=== PATIENT | female | born 1955 | race African-American/Black ===

== ENCOUNTER 2018-04-28 18:59 | Inpatient (IN) ==
--- NOTE | 2018-04-28 20:17 | XR ---
EXAM DATE: 04/28/2018 8:14 PM EST AGE/SEX: 62 years / Female INDICATIONS: Chest pain CLINICAL DATA: This is the patient's initial encounter. Patient reports that signs and symptoms have been present for 2 days and indicates a pain score of 0/10. MEDICAL/SURGICAL HISTORY: Hypertension. None. COMPARISON: . FINDINGS: A single AP view of the chest demonstrates the lungs to be symmetrically aerated without evidence of mass, infiltrate or effusion. Minimal basilar atelectasis. The cardiomediastinal contours are unremar kable. Osseous structures are intact. CONCLUSION: Minimal basilar atelectasis. Electronically signed by: Joel Stokes MD Board Certified Radiologist 04/28/2018 8:16 PM EST
--- NOTE | 2018-04-28 20:25 | ED ---
HPI General Chief complaint: Hypertension Stated complaint: Elevated blood pressure complaint Time Seen by Provider: 04/28/18 20:04 Source: patient Limitations: no limitations History of Present Illness HPI narrative: The patient is a 62 year old male who presents to the [facility] emergency department with a history of multiple systemic complaints that first began on of this past week, 3 days ago. The patient reports that she initially developed a pounding headache. She reports that the headache is present in bilateral temples. The patient reports that she is visiting from [place]. The patient reports that the only blood pressure medication that she is on is Resilo. She denies any recent changes in her blood pressure medication, however the patient on arrival was noted to have a blood pressure of 245/121. She reports that normally her blood pressure is well controlled with her medication regimen, however she has had some recent dietary indiscretions and is also been under increased stress. The patient reports that she then 2 days ago developed a chest pressure that is been coming and going, however more persistent in the center of her chest today. The patient's final concern is a heavy sensation in bilateral upper extremities associated with tingling in her hands. She reports that she has had this in the past and has been diagnosed with a pinched nerve in her neck as well as spinal spondylosis. She reports that she does take a low-dose aspirin daily which she did take today. She reports a prior history of stroke in November 2017 with mild residual weakness of her right upper extremity. She denies having any recent shortness of breath, vomiting, or diarrhea. She reports that she does have some nausea. She denies having, on review of systems, any known recent fevers, cough, congestion, urinary symptoms, new focal weakness of her extremities, new tingling of her extremities, facial droop, difficulty with word finding ability, vertigo, or vision changes. Related Data Home Medications Medication Instructions Recorded Confirmed Etoricoxib 90 mg PO DAILY 04/28/18 04/28/18 Mydocalm 150 mg PO BID 04/28/18 aspirin [Aspirin Low Dose] 81 mg PO DAILY 04/28/18 04/28/18 atorvastatin 40 mg PO QPM 04/28/18 04/28/18 losartan 50 mg PO DAILY 04/28/18 04/28/18 pregabalin 75 mg PO BID 04/28/18 04/28/18 Allergies Allergy/AdvReac Type Severity Reaction Status Date / Time No Known Allergies Allergy Verified 04/28/18 19:34 Review of Systems ROS: all other systems reviewed are negative [facility] Medical History Medical History Hypercholesteremia (Acute) Hypertension (Acute) Spondylosis (Acute) TIA (transient ischemic attack) (Acute) Social History Social History Smoking Status: Never smoker How Often Do You Have a Drink Containing Alcohol: Never Immunization History Tetanus Immunization: >5 Years Exam Const General: cooperative, no acute distress and well developed Nutritional Appearance: well nourished Orientation: alert, awake and oriented x3 HENMT Head: normocephalic and atraumatic Nose: no nasal discharge and no epistaxis Mouth: moist mucous membranes Throat: posterior oropharynx normal and uvula midline Eyes Sclera: normal sclerae Pupils: PERRL Neck Neck: no meningeal signs, trachea midline and no JVD Resp Effort & Inspection: no use of accessory muscles Auscultation: clear to auscultation bilaterally Cardio Rate: regular rate Rhythm: regular rhythm Heart Sounds: no murmurs GI Inspection: non-distended Palpation: soft, no hepatosplenomegaly, no guarding, not rigid and nontender Auscultation: normal bowel sounds Back/Spine/Pelvis Back: no CVA tenderness Skin General: dry skin (warm) Neuro General: alert, awake and oriented x3 Cranial Nerves: CN's II-XI intact bilaterally Speech: speech normal Motor: strength 5/5 throughout and no movement abnormalities noted Sensory Exam: no sensory deficits noted Extrem General: normal to inspection (2+ pulses in all 4 extremities.), no calf tenderness, no clubbing, no cyanosis and no edema Psych Mood: congruent mood Affect: normal affect Judgment: judgment good Course Initial Documented Vital Signs Temperature 98.5 F 04/28/18 19:14 Pulse Rate 72 04/28/18 19:14 Respiratory Rate 20 04/28/18 19:14 Blood Pressure 195/119 H 04/28/18 19:14 Pulse Oximetry 99 04/28/18 19:14 Last Documented Vital Signs Temperature 98.5 F 04/28/18 19:14 Pulse Rate 68 04/28/18 21:10 Respiratory Rate 20 04/28/18 21:10 Blood Pressure 166/90 H 04/28/18 21:10 Pulse Oximetry 98 04/28/18 21:10 Medical Decision Making MDM Narrative Medical decision making narrative: During the course of the patient's emergency department visit, the patient's history, examination, and differential diagnosis were reviewed with the patient. The patient was placed on a cardiac technologist with oximetry and frequent blood pressure monitoring. The patient had IV access obtained and blood work sent for analysis. Diagnostic evaluation was started regarding the patient's heavy sensation in bilateral upper extremities, chest pressure, pounding headache. The patient arrives with a blood pressure of 245/121. The patient was initially provided labetalol 10 mg IV, Tylenol for pain, nitroglycerin sublingual x1, nitroglycerin 1 inch to the chest wall. The patient's diagnostic evaluation is remarkable for a white count of 7.5, hemoglobin 13.7, platelets 178 with a normal differential, PT PTT within normal limits, d-dimer is noted to be elevated at 1.17, CTA to rule out PE was ordered. Chemistry is remarkable for potassium of 3.4, GFR of 88, AST is 64, ALT 99, alkaline phosphatase is 151. CPK is 1411 consistent with rhabdomyolysis with a normal MB percent, troponin I is less than 0.02, BNP within normal limits, lipase 143 a chest x-ray showed minimal basilar atelectasis, CT scan of the brain showed no acute abnormality. CTA of the chest shows no evidence of pulmonary embolism, minimal right basilar atelectatic changes are noted, cholelithiasis is noted. The patient's case including history, pertinent physical examination findings, and laboratory studies were discussed with the [facility] residents. It was agreed that the patient would be admitted to the [facility]. The patient's results were discussed with the patient, including the plan of care. I explained that further testing and/ or monitoring is indicated based on the patient's history, examination, and/ or laboratory findings. Therefore, I recommended admission for additional evaluation. The patient expressed understanding and was agreeable with this plan. The patient was admitted to the hospital in guarded condition and sent to a bed under the care of the residents. Medical Screen Exam Complete: Yes Emergency Medical Condition: Yes Differential Diagnosis Differential Diagnosis: Intracranial hemorrhage, versus acute coronary syndrome , versus hypertensive urgency, versus hypertensive emergency Medical Records Medical records reviewed: Yes I reviewed the patient's medical records. Lab Data Lab results reviewed: Yes I reviewed the patient's lab results. Result diagrams: 04/28/18 20:00 04/28/18 20:00 Lab Results 04/28/18 04/28/18 04/28/18 Range/Units 20:00 20:00 20:00 WBC 7.5 (4.0-11.0) th/mm3 RBC 4.31 (4.00-5.30) mil/mm3 Hgb 13.7 (11.6-15.3) gm/dL Hct 39.4 (35.0-46.0) % MCV 91.6 (80.0-100.0) fL MCH 31.9 (27.0-34.0) pg MCHC 34.8 (32.0-36.0) % RDW 14.6 (11.6-17.2) % Plt Count 178 (150-450) th/mm3 MPV 9.2 (7.0-11.0) fL Neut % (Auto) 60.4 (16.0-70.0) % Lymph % (Auto) 32.9 (9.0-44.0) % [place] % (Auto) 5.4 (0.0-8.0) % Eos % (Auto) 0.8 (0.0-4.0) % Baso % (Auto) 0.5 (0.0-2.0) % Neut # (Auto) 4.5 (1.8-7.7) th/mm3 Lymph # (Auto) 2.5 (1.0-4.8) th/mm3 [place] # (Auto) 0.4 (0.0-0.9) th/mm3 Eos # (Auto) 0.1 (0.0-0.4) th/mm3 Baso # (Auto) 0.0 (0.0-0.2) th/mm3 WBC Differential . Differential Comment Auto diff final PT 10.7 (9.8-11.6) sec INR 1.1 Ratio APTT 25.7 (23.4-31.7) sec D-Dimer Quant (PE/DVT) 1.17 H (0.00-0.50) mg/L FEU Sodium 141 (136-145) meq/L Potassium 3.4 L (3.5-5.1) meq/L Chloride 106 (98-107) meq/L Carbon Dioxide 28.1 (21.0-32.0) meq/L Anion Gap 7 (5-15) meq/L BUN 16 (7-18) mg/dL Creatinine 0.80 (0.50-1.00) mg/dL Estimated GFR 88 L (>89) mL/min Random Glucose 78 (74-106) mg/dL Calcium 8.7 (8.5-10.1) mg/dL Magnesium 2.4 (1.5-2.5) mg/dL Total Bilirubin 0.4 (0.2-1.0) mg/dL AST 64 H (15-37) U/L ALT 99 H (10-53) U/L Alkaline Phosphatase 151 H (45-117) U/L Total Creatine Kinase 1411 H (26-192) U/L CK-MB (CK-2) 6.9 H (0.5-3.6) ng/mL CK-MB (CK-2) % 0.5 (0.0-4.0) % Troponin I Less than 0.02 L (0.02-0.05) ng/mL B-Natriuretic Peptide (0-100) pg/mL Total Protein 8.4 H (6.4-8.2) g/dL Albumin 3.9 (3.4-5.0) g/dL Lipase 143 (73-393) U/L 04/28/18 Range/Units 20:00 WBC (4.0-11.0) th/mm3 RBC (4.00-5.30) mil/mm3 Hgb (11.6-15.3) gm/dL Hct (35.0-46.0) % MCV (80.0-100.0) fL MCH (27.0-34.0) pg MCHC (32.0-36.0) % RDW (11.6-17.2) % Plt Count (150-450) th/mm3 MPV (7.0-11.0) fL Neut % (Auto) (16.0-70.0) % Lymph % (Auto) (9.0-44.0) % [place] % (Auto) (0.0-8.0) % Eos % (Auto) (0.0-4.0) % Baso % (Auto) (0.0-2.0) % Neut # (Auto) (1.8-7.7) th/mm3 Lymph # (Auto) (1.0-4.8) th/mm3 [place] # (Auto) (0.0-0.9) th/mm3 Eos # (Auto) (0.0-0.4) th/mm3 Baso # (Auto) (0.0-0.2) th/mm3 WBC Differential Differential Comment PT (9.8-11.6) sec INR Ratio APTT (23.4-31.7) sec D-Dimer Quant (PE/DVT) (0.00-0.50) mg/L FEU Sodium (136-145) meq/L Potassium (3.5-5.1) meq/L Chloride (98-107) meq/L Carbon Dioxide (21.0-32.0) meq/L Anion Gap (5-15) meq/L BUN (7-18) mg/dL Creatinine (0.50-1.00) mg/dL Estimated GFR (>89) mL/min Random Glucose (74-106) mg/dL Calcium (8.5-10.1) mg/dL Magnesium (1.5-2.5) mg/dL Total Bilirubin (0.2-1.0) mg/dL AST (15-37) U/L ALT (10-53) U/L Alkaline Phosphatase (45-117) U/L Total Creatine Kinase (26-192) U/L CK-MB (CK-2) (0.5-3.6) ng/mL CK-MB (CK-2) % (0.0-4.0) % Troponin I (0.02-0.05) ng/mL B-Natriuretic Peptide 15 (0-100) pg/mL Total Protein (6.4-8.2) g/dL Albumin (3.4-5.0) g/dL Lipase (73-393) U/L Imaging Data Radiologist's impression: Chest X-Ray 04/28/18 20:05 CONCLUSION: Minimal basilar atelectasis. Head CT 04/28/18 20:05 CONCLUSION: 1. No acute intracranial abnormalities. . . Chest CTA 04/28/18 21:50 CONCLUSION: 1. Minimal right basilar atelectatic changes. 2. Otherwise negative. No acute infiltrate or pulmonary embolus to explain current clinical symptoms. 3. Cholelithiasis. ECG Data Attestation: I personally reviewed and interpreted this ECG as follows: Interpretation: The patient had an EKG done on arrival. The patient's EKG shows a sinus rhythm heart rate is 73, QRS duration is 81 ms, QTC [address] segment elevation. Borderline left axis deviation is noted. Discharge Plan Discharge Disposition Patient Disposition: ED Admit(ED Internal Use Only) Discharge Order Discharge Orders: ED Use Only Admit Order (Routine); Ordered 04/28/18 Ordered By: Lorraine Wooten Discharge Details Diagnosis: Hypertensive urgency, Rhabdomyolysis Physicians Team ED Provider: Lorraine Wooten Primary Care Provider: UNKNOWN, Rxs /Orders / Referrals /Forms Prescriptions: No Action Etoricoxib 90 mg tablet 90 mg PO DAILY RF: 0 losartan 50 mg Tablet 50 mg PO DAILY RF: 0 atorvastatin 40 mg Tablet 40 mg PO QPM RF: 0 aspirin [Aspirin Low Dose] 81 mg Tablet,Delayed Release (Dr/Ec) 81 mg PO DAILY RF: 0 pregabalin 75 mg Capsule 75 mg PO BID RF: 0 Mydocalm 150 mg tablet 150 mg PO BID RF: 0 Discharge Interventions Interventions: Vital Signs Last Done: 04/28/18 19:35 Status ED Status: Admitted Patient
[2018-04-28] MEDS ORDERED: Labetalol HCl Inj 100 MG/20 ML Vial IV.PUSH ONE (20:29)
[2018-04-28 20:32] LABS: Baso % (Auto) 0.5 % (0.0-2.0); Eos # (Auto) 0.1 th/mm3 (0.0-0.4); Eos % (Auto) 0.8 % (0.0-4.0); Hematocrit 39.4 % (35.0-46.0); Hemoglobin 13.7 gm/dL (11.6-15.3); Lymph # (Auto) 2.5 th/mm3 (1.0-4.8); Lymph % (Auto) 32.9 % (9.0-44.0); Mean Corpuscular HGB Conc 34.8 % (32.0-36.0); Mean Corpuscular Hemoglobin 31.9 pg (27.0-34.0); Mean Corpuscular Volume 91.6 fL (80.0-100.0); Mean Platelet Volume 9.2 fL (7.0-11.0); Mono # (Auto) 0.4 th/mm3 (0.0-0.9); Mono % (Auto) 5.4 % (0.0-8.0); Neut # (Auto) 4.5 th/mm3 (1.8-7.7); Neut % (Auto) 60.4 % (16.0-70.0); Platelet Count 178 th/mm3 (150-450); Red Blood Count 4.31 mil/mm3 (4.00-5.30); Red Cell Distribution Width 14.6 % (11.6-17.2); White Blood Count 7.5 th/mm3 (4.0-11.0)
[2018-04-28] MEDS ORDERED: Acetaminophen 325 MG Tablet PO ONE (20:48)
[2018-04-28 20:50] LABS: Activated Partial Thrombo Time 25.7 sec (23.4-31.7); Alanine Aminotransferase 99 U/L (10-53); Albumin 3.9 g/dL (3.4-5.0); Anion Gap 7 meq/L (5-15); Aspartate Aminotransferase 64 U/L (15-37); Blood Urea Nitrogen 16 mg/dL (7-18); Calcium 8.7 mg/dL (8.5-10.1); Carbon Dioxide 28.1 meq/L (21.0-32.0); Chloride 106 meq/L (98-107); Glomerular Filtration Rate 88 mL/min (>89); Glucose,Random 78 mg/dL (74-106); INR 1.1 Ratio; Lipase 143 U/L (73-393); Magnesium 2.4 mg/dL (1.5-2.5); Potassium 3.4 meq/L (3.5-5.1); Prothrombin Time 10.7 sec (9.8-11.6); Sodium 141 meq/L (136-145)
[2018-04-28] MEDS ORDERED: Labetalol HCl Inj 20 MG/4 ML Vial IV.PUSH ONE (21:00)
--- NOTE | 2018-04-28 21:03 | CT ---
EXAM DATE: 04/28/2018 8:52 PM EST AGE/SEX: 62 years / Female INDICATIONS: Dizziness with elevated blood pressure past 3 days. CLINICAL DATA: This is the patient's initial encounter. Patient reports that signs and symptoms have been present for 3 days and indicates a pain score of 0/10. MEDICAL/SURGICAL HISTORY: Hypertension. Hypercholesterolemia. Transient ischemic attack. None. RADIATION DOSE: 56.34 CTDI (mGy) COMPARISON: No prior exams available for comparison. TECHNIQUE: CT of the head without contrast. Using automated exposure control and adjustment of the mA and/or kV according to patient size, radiation dose was kept as low as reasonably achievable to ob tain optimal diagnostic quality images. DICOM format image data is available electronically for revi ew and comparison. FINDINGS: Cerebrum: The ventricles are normal for age. No evidence of midline shift, mass lesion, hemorrhage or acute infarction. No extraaxial fluid collections are seen. Posterior Fossa: The cerebellum and brainstem are intact. The 4th ventricle is midline. The cerebe llopontine angle is unremarkable. Extracranial: The visualized portion of the orbits is intact. Skull: The calvaria is intact. No evidence of skull fracture. CONCLUSION: 1. No acute intracranial abnormalities. . . Electronically signed by: Joel Stokes MD Board Certified Radiologist 04/28/2018 9:02 PM EST
[2018-04-28 21:05] LABS: Alkaline Phosphatase 151 U/L (45-117); Creatine Kinase 1411 U/L (26-192); Total Protein 8.4 g/dL (6.4-8.2)
[2018-04-28 21:15] LABS: D-Dimer 1.17 mg/L FEU (0.00-0.50)
[2018-04-28 21:17] LABS: CKMB Percent 0.5 % (0.0-4.0); Creatine Kinase MB 6.9 ng/mL (0.5-3.6)
--- NOTE | 2018-04-28 23:15 | CT ---
EXAM DATE: 04/28/2018 11:09 PM EST AGE/SEX: 62 years / Female INDICATIONS: Dizziness with elevated blood pressure past 3 days. Increased D-Dimer. CLINICAL DATA: This is the patient's initial encounter. Patient reports that signs and symptoms have been present for 3 days and indicates a pain score of 0/10. MEDICAL/SURGICAL HISTORY: Hypertension. Hypercholesterolemia. Transient ischemic attack. None. RADIATION DOSE: 9.42 CTDI (mGy) COMPARISON: No prior exams available for comparison. TECHNIQUE: Volumetric scanning was performed using a multi-row detector CT scanner during bolus infu cuate of 75 ml Omnipaque 350 (iohexol) nonionic water-soluble contrast as a single exam dose. The alvaro a was post processed with a variety of visualization algorithms including full volume maximum intensi ty projection and sliding thin slab reformation. Using automated exposure control and adjustment of the mA and/or kV according to patient size, radiation dose was kept as low as reasonably achievable t o obtain optimal diagnostic quality images. DICOM format image data is available electronically for review and comparison. FINDINGS: Pulmonary Arteries: No filling defects are seen in the pulmonary arteries out to the subsegmental ve ssels. The left and right pulmonary arteries are normal in diameter. Lung: No infiltrates seen. Minimal atelectatic changes in the right base. Isolated 3 mm nodule later ally in the right upper lung is almost certainly postinflammatory. Effusion: None. Mediastinum: No evidence of mediastinal or hilar adenopathy. Other: The axilla is unremarkable. Multiple calcified and noncalcified gallstones in the gallbladder lumen. CONCLUSION: 1. Minimal right basilar atelectatic changes. 2. Otherwise negative. No acute infiltrate or pulmonary embolus to explain current clinical symptoms . 3. Cholelithiasis. Electronically signed by: Hunter Inman MD Board Certified Radiologist 04/28/2018 11:14 PM EST
[2018-04-28] MEDS ORDERED: Acetaminophen 325 MG Tablet PO PRN (23:58)
--- NOTE | 2018-04-28 23:58 | P.HPFP ---
History of Present Illness Primary Care Physician: UNKNOWN <Luis Angel Azar 04/29/18 11:27> UNKNOWN <Mariama Chadwick 04/29/18 02:32> Chief Complaint: Chest pain <Mariama Chadwick 04/29/18 02:32> History of Present Illness: Patient is a 62 year old female who presents to the [facility] ED for evaluation of chest pain. She has been experiencing chest pain since or Sunday but pain worsened today so she decided to seek medical attention. Patient describes the pain as a substernal tightening or cramping pain. She rates the pain an 8/10. She denies shortness of breath or diaphoresis. Nitroglycerin administered in the ED alleviated the chest pain but caused mild headache. Patient also experienced numbness involving her right cheek. Numbness had resolved at time of our encounter. Patient denies facial droop. Patient suffered TIA on November 25, 2017. At that time, she experienced a right-sided facial droop with tingling sensation as well as right upper extremity weakness. Symptoms have completely resolved. Patient also reports bilateral hand, mostly finger, and feet tingling, numbness and tightness. She compares the feeling to being hooked up to a TENS machine. Symptoms had resolved at time of our encounter. Of note, patient with chronic neck and back pain. She has an appointment scheduled with neurosurgery back home in [place] for possible surgery. Patient denies muscle aches, soreness, or weakness. She denies a fall but reports unsteady gait over the last few days. She denies headache, dizziness, visual changes, nausea, vomiting. On arrival, patient with elevated BP up to 264/128. Patient says that her blood pressure has never been this high. However, her systolic blood pressure runs 150 /160s. <Mariama Chadwick 04/29/18 03:09> - Diagnosis (1) Hypertensive emergency (2) Chest pain (3) Rhabdomyolysis (4) Elevated liver enzymes (5) Nutrition, metabolism, and development symptoms <Luis Angel Azar 04/29/18 11:27> (1) Hypertensive emergency (2) Chest pain (3) Rhabdomyolysis (4) Elevated liver enzymes (5) Nutrition, metabolism, and development symptoms <Mariama Chadwick 04/29/18 02:32> Inpatient Certification: I certify that the inpatient services were ordered in accordance with Medicare regulations governing the order. This includes certification that hospital inpatient services are reasonable and necessary and in the case of services not specified as inpatient-only under 42 CFR 419.22(n), that they are appropriately provided as inpatient services in accordance to with the 2-midnight benchmark under 43 CFR 412.3(e) <Luis Angel Azar 04/29/18 11:27> I certify that the inpatient services were ordered in accordance with Medicare regulations governing the order. This includes certification that hospital inpatient services are reasonable and necessary and in the case of services not specified as inpatient-only under 42 CFR 419.22(n), that they are appropriately provided as inpatient services in accordance to with the 2-midnight benchmark under 43 CFR 412.3(e) <Mariama Chadwick 04/28/18 23:58> Estimated Total Length of Stay (Days): 3 <Mariama Chadwick 04/28/18 23:58> Plans for Post Hospital Care: Not yet determined <Mariama Chadwick 23:58> Review of Systems All other systems reviewed negative except as stated in HPI <Mariama Chadwick 04/28/18 23:58> PMFSH - History History Provided By: Patient <Mariama Chadwick 04/28/18 23:58> - Medical / Surgical Hx Neg / Unobtainable Surgical History: No Previous Surgery <Mariama Chadwick 04/29/18 02:32> - Medical History Medical History: Medical History (Last Updated 04/28/18 @ 19:37 by Swati Mckeon RN) Hypercholesteremia Hypertension Spondylosis TIA (transient ischemic attack) <Luis Angel Azar 04/29/18 11:27> Medical History (Last Updated 04/28/18 @ 19:37 by Swati Mckeon RN) Hypercholesteremia Hypertension Spondylosis TIA (transient ischemic attack) <Mariama Chadwick 04/28/18 23:58> - Family History Family History: Family History (Last Updated 04/29/18 @ 02:25 by Mariama Parikh MD, R2) Other Family history of diabetes mellitus Family history of heart failure <Luis Angel Azar 04/29/18 11:27> Family History (Last Updated 04/29/18 @ 02:25 by Mariama Parikh MD, R2) Other Family history of diabetes mellitus Family history of heart failure <Mariama Chadwick 04/29/18 02:32> - Social History I have reviewed the patient's Social History: Yes <Mariama Chadwick 02:32> - Tobacco History Second Hand Smoke Exposure: No <Mariama Chadwick 04/29/18 02:32> Tobacco Use In Past 30 Days: No <Mariama Chadwick 04/29/18 02:32> Smoking Status: Never smoker <Mariama Chadwick 04/28/18 23:58> - Alcohol History How Often Do You Have a Drink Containing Alcohol: Never <Mariama Chadwick 04/28/18 23:58> - Substance Use History Substance History: No History of Abuse <Mariama Chadwick 04/29/18 02:32> - Travel History History of Recent Travel: Yes (Patient from [place], visiting [facility], [facility] ) <Mariama Chadwick 04/29/18 02:32> - Immunization History Tetanus Immunization: >5 Years <Mariama Chadwick 04/28/18 23:58> Medications and Allergies Allergies Allergy/AdvReac Type Severity Reaction Status Date / Time No Known Allergies Allergy Verified 04/28/18 19:34 <Luis Angel Azar 04/29/18 11:27> Home Medications Medication Instructions Recorded Confirmed Type Etoricoxib 90 mg PO DAILY 04/28/18 04/29/18 History Mydocalm 150 mg PO BID 04/28/18 04/29/18 History aspirin [Aspirin Low Dose] 81 mg PO DAILY 04/28/18 04/28/18 History atorvastatin 40 mg PO QPM 04/28/18 04/28/18 History losartan 50 mg PO DAILY 04/28/18 04/28/18 History pregabalin 75 mg PO BID 04/28/18 04/28/18 History <Luis Angel Azar 04/29/18 11:27> Active Medications: Active Medications Acetaminophen (Tylenol) 650 mg PO Q4H PRN PRN Reason: Temp > 100.4 Aspirin (Ecotrin) 81 mg PO DAILY [facility] Last Admin: 04/29/18 08:36 Dose: 81 mg Sodium Chloride (Ns Inj) 1,000 mls @ 150 mls/hr IV.CONT .Q6H40M [facility] Last Admin: 04/29/18 08:46 Dose: 150 mls/hr Losartan Potassium (Cozaar) 50 mg PO DAILY [facility] Last Admin: 04/29/18 08:36 Dose: 50 mg Morphine Sulfate (Morphine Inj) 2 mg IV.PUSH Q1H PRN PRN Reason: Chest Pain ONLY Last Admin: 04/29/18 09:28 Dose: 2 mg Nitroglycerin (Nitro-Bid 2% Oint) 0.5 inch TOPICAL Q6HR PRN PRN Reason: CHEST PAIN Ondansetron HCl (Zofran Inj) 4 mg IV.PUSH Q6H PRN PRN Reason: NAUSEA OR VOMITING Last Admin: 04/29/18 01:32 Dose: 4 mg Pregabalin (Lyrica) 75 mg PO BID [facility] Last Admin: 04/29/18 08:36 Dose: 75 mg Senna/Docusate Sodium (Taryn-Colace) 1 tab PO BID [facility] Last Admin: 04/29/18 08:36 Dose: 1 tab Sodium Chloride (Ns Flush) 2 ml IV.FLUSH BID [facility] Last Admin: 04/29/18 08:37 Dose: 2 ml Sodium Chloride (Ns Flush) 2 ml IV.FLUSH PRN PRN PRN Reason: FLUSH AFTER USING IV ACCESS <Luis Angel Azar - 04/29/18 11:27> Active Medications Sodium Chloride (Ns Flush) 2 ml IV.FLUSH UNSCH PRN PRN Reason: FLUSH AFTER USING IV ACCESS <Mariama Chadwick - 04/28/18 23:58> Exam Vital signs: Vital Signs 04/28/18 19:14 04/28/18 19:35 04/28/18 20:09 Temperature 98.5 F Pulse Rate 72 76 69 Respiratory Rate 20 18 20 Blood Pressure 195/119 H 232/122 H 245/121 H Pulse Oximetry 99 100 98 04/28/18 20:55 04/28/18 21:05 04/28/18 21:10 Temperature Pulse Rate 65 70 68 Respiratory Rate 20 Blood Pressure 264/128 H 168/93 H 166/90 H Pulse Oximetry 98 04/29/18 00:53 04/29/18 01:30 04/29/18 04:00 Temperature 97.6 F Pulse Rate 62 71 88 Respiratory Rate 20 18 16 Blood Pressure 134/72 158/86 H 139/80 Pulse Oximetry 99 97 04/29/18 07:00 04/29/18 08:00 Temperature 98.2 F Pulse Rate 58 L 74 Respiratory Rate 16 Blood Pressure 124/68 Pulse Oximetry 98 Intake & Output 04/28/18 04/29/18 04/29/18 18:59 06:59 18:59 Output Total 300 / 300 Balance -300 / -300 Weight 70.9 kg 70.9 kg Output: Urine 300 / 300 Other: Date of Last Bowel Movement 04/28/18 Weight On Admission 70.9 kg <Luis Angel Azar - 04/29/18 11:27> Vital Signs 04/28/18 19:14 04/28/18 19:35 04/28/18 20:09 Temperature 98.5 F Pulse Rate 72 76 69 Respiratory Rate 20 18 20 Blood Pressure 195/119 H 232/122 H 245/121 H Pulse Oximetry 99 100 98 04/28/18 20:55 04/28/18 21:05 04/28/18 21:10 Temperature Pulse Rate 65 70 68 Respiratory Rate 20 Blood Pressure 264/128 H 168/93 H 166/90 H Pulse Oximetry 98 Intake & Output 04/28/18 04/28/18 04/29/18 06:59 18:59 06:59 Weight 72.121 kg <Mariama Chadwick - 04/28/18 23:58> Narrative: GENERAL: -[place] female, laying in hospital bed, in no acute distress. SKIN: Warm and dry. HEAD: Tenderness upon palpation along forehead. EYES: Pupils equal and round. No scleral icterus. No injection or drainage. ENT: No nasal bleeding or discharge. Mucous membranes pink and moist. NECK: Trachea midline. No JVD. CARDIOVASCULAR: Regular rate and rhythm. RESPIRATORY: No accessory muscle use. Clear to auscultation. Breath sounds equal bilaterally. GASTROINTESTINAL: Abdomen soft, non-tender, nondistended. MUSCULOSKELETAL: Extremities without clubbing, cyanosis, or edema. No obvious deformities. NEUROLOGICAL: Awake and alert. No obvious cranial nerve deficits. Motor and sensory grossly within normal limits. Five out of 5 muscle strength in the arms and legs. Normal speech. PSYCHIATRIC: Appropriate mood and affect; insight and judgment fair. <Ben Mariama Parikh - 04/29/18 02:32> Results - Labs Result diagrams: 04/29/18 03:09 04/29/18 03:09 <Luis Agnel Azar - 04/29/18 11:27> Abnormal lab results 04/28/18 04/28/18 04/29/18 Range/Units 20:00 20:00 03:09 D-Dimer Quant (PE/DVT) 1.17 H (0.00-0.50) mg/L FEU Potassium 3.4 L (3.5-5.1) meq/L Chloride 108 H (98-107) meq/L Carbon Dioxide 32.2 H (21.0-32.0) meq/L Anion Gap 4 L (5-15) meq/L Estimated GFR 88 L (>89) mL/min AST 64 H 51 H (15-37) U/L ALT 99 H 86 H (10-53) U/L Alkaline Phosphatase 151 H 142 H (45-117) U/L Total Creatine Kinase 1411 H 952 H (26-192) U/L CK-MB (CK-2) 6.9 H 5.0 H (0.5-3.6) ng/mL Troponin I Less than 0.02 L Less than 0.02 L (0.02-0.05) ng/mL Total Protein 8.4 H (6.4-8.2) g/dL Cholesterol 94 L (120-200) mg/dL Short CBC 04/28/18 04/29/18 Range/Units 20:00 03:09 WBC 7.5 7.5 (4.0-11.0) th/mm3 Hgb 13.7 13.5 (11.6-15.3) gm/dL Hct 39.4 39.1 (35.0-46.0) % Plt Count 178 183 (150-450) th/mm3 BMP 04/28/18 04/29/18 04/29/18 20:00 03:09 03:09 Sodium 141 144 Cancelled Potassium 3.4 L 4.2 D Cancelled Chloride 106 108 H Cancelled Carbon Dioxide 28.1 32.2 H Cancelled BUN 16 13 Cancelled Creatinine 0.80 0.79 Cancelled Calcium 8.7 8.7 Cancelled Cardiac Enzymes 04/28/18 04/29/18 Range/Units 20:00 03:09 Total Creatine Kinase 1411 H 952 H (26-192) U/L CK-MB (CK-2) 6.9 H 5.0 H (0.5-3.6) ng/mL Troponin I Less than 0.02 L Less than 0.02 L (0.02-0.05) ng/mL Liver Function 04/28/18 04/29/18 04/29/18 Range/Units 20:00 03:09 03:09 Total Bilirubin 0.4 0.4 Cancelled (0.2-1.0) mg/dL AST 64 H 51 H Cancelled (15-37) U/L ALT 99 H 86 H Cancelled (10-53) U/L Alkaline Phosphatase 151 H 142 H Cancelled (45-117) U/L Albumin 3.9 3.7 Cancelled (3.4-5.0) g/dL <Luis Angel Azar - 04/29/18 11:27> Abnormal lab results 04/28/18 04/28/18 Range/Units 20:00 20:00 D-Dimer Quant (PE/DVT) 1.17 H (0.00-0.50) mg/L FEU Potassium 3.4 L (3.5-5.1) meq/L Estimated GFR 88 L (>89) mL/min AST 64 H (15-37) U/L ALT 99 H (10-53) U/L Alkaline Phosphatase 151 H (45-117) U/L Total Creatine Kinase 1411 H (26-192) U/L CK-MB (CK-2) 6.9 H (0.5-3.6) ng/mL Troponin I Less than 0.02 L (0.02-0.05) ng/mL Total Protein 8.4 H (6.4-8.2) g/dL Short CBC 04/28/18 Range/Units 20:00 WBC 7.5 (4.0-11.0) th/mm3 Hgb 13.7 (11.6-15.3) gm/dL Hct 39.4 (35.0-46.0) % Plt Count 178 (150-450) th/mm3 BMP 04/28/18 20:00 Sodium 141 Potassium 3.4 L Chloride 106 Carbon Dioxide 28.1 BUN 16 Creatinine 0.80 Calcium 8.7 Cardiac Enzymes 04/28/18 Range/Units 20:00 Total Creatine Kinase 1411 H (26-192) U/L CK-MB (CK-2) 6.9 H (0.5-3.6) ng/mL Troponin I Less than 0.02 L (0.02-0.05) ng/mL Liver Function 04/28/18 Range/Units 20:00 Total Bilirubin 0.4 (0.2-1.0) mg/dL AST 64 H (15-37) U/L ALT 99 H (10-53) U/L Alkaline Phosphatase 151 H (45-117) U/L Albumin 3.9 (3.4-5.0) g/dL <Paige Chadwickstin - 04/28/18 23:58> - Imaging Impressions Chest X-Ray 04/28/18 20:05 CONCLUSION: Minimal basilar atelectasis. Head CT 04/28/18 20:05 CONCLUSION: 1. No acute intracranial abnormalities. . . Chest CTA 04/28/18 21:50 CONCLUSION: 1. Minimal right basilar atelectatic changes. 2. Otherwise negative. No acute infiltrate or pulmonary embolus to explain current clinical symptoms. 3. Cholelithiasis. <Luis Angel Azar - 04/29/18 11:27> Impressions Chest X-Ray 04/28/18 20:05 CONCLUSION: Minimal basilar atelectasis. Head CT 04/28/18 20:05 CONCLUSION: 1. No acute intracranial abnormalities. . . Chest CTA 04/28/18 21:50 CONCLUSION: 1. Minimal right basilar atelectatic changes. 2. Otherwise negative. No acute infiltrate or pulmonary embolus to explain current clinical symptoms. 3. Cholelithiasis. <LabelPaige Solisstin - 04/28/18 23:58> Caprini VTE Risk Assessment Caprini VTE Risk Assessment: Moderate/High Risk (score >= 2) <Labell Jl, Mariama - 04/28/18 23:58> Caprini Risk Assessment Model: Point Value = 1 Point Value = 2 Point Value = 3 Point Value = 5 Age 41-60 Minor surgery BMI > 25 kg/m2 Swollen legs Varicose veins or History of unexplained or recurrent spontaneous Oral contraceptives or hormone replacement Sepsis (< 1 month) Serious lung disease, including pneumonia (< 1 month) Abnormal pulmonary function Acute myocardial infarction Congestive heart failure (< 1 month) History of inflammatory bowel disease Medical patient at bed rest Age 61-74 Arthroscopic surgery Major open surgery (> 45 min) Laparoscopic surgery (> 45 min) Malignancy Confined to bed (> 72 hours) Immobilizing plaster cast Central venous access Age >= 75 History of VTE Family history of VTE Factor V Leiden Prothrombin [id number] Lupus anticoagulant Anticardiolipin antibodies Elevated serum homocysteine Heparin-induced thrombocytopenia Other congenital or acquired thrombophilia Stroke (< 1 month) Elective arthroplasty Hip, pelvis, or leg fracture Acute spinal cord injury (< 1 month) <Luis Angel Azar - 04/29/18 11:27> Point Value = 1 Point Value = 2 Point Value = 3 Point Value = 5 Age 41-60 Minor surgery BMI > 25 kg/m2 Swollen legs Varicose veins or History of unexplained or recurrent spontaneous Oral contraceptives or hormone replacement Sepsis (< 1 month) Serious lung disease, including pneumonia (< 1 month) Abnormal pulmonary function Acute myocardial infarction Congestive heart failure (< 1 month) History of inflammatory bowel disease Medical patient at bed rest Age 61-74 Arthroscopic surgery Major open surgery (> 45 min) Laparoscopic surgery (> 45 min) Malignancy Confined to bed (> 72 hours) Immobilizing plaster cast Central venous access Age >= 75 History of VTE Family history of VTE Factor V Leiden Prothrombin [id number] Lupus anticoagulant Anticardiolipin antibodies Elevated serum homocysteine Heparin-induced thrombocytopenia Other congenital or acquired thrombophilia Stroke (< 1 month) Elective arthroplasty Hip, pelvis, or leg fracture Acute spinal cord injury (< 1 month) <Mariama Chadwick - 04/28/18 23:58> Prophylaxis Regimen: Total Risk Factor Score Risk Level Prophylaxis Regimen 0-1 Low Early ambulation 2 Moderate Order ONE of the following: *Sequential Compression Device (SCD) *Heparin 5000 units SQ BID 3-4 Higher Order ONE of the following medications: *Heparin 5000 units SQ TID *Enoxaparin/Lovenox 40 mg SQ daily (WT < 150 kg, CrCl > 30 mL/min) *Enoxaparin/Lovenox 30 mg SQ daily (WT < 150 kg, CrCl > 10-29 mL/min) *Enoxaparin/Lovenox 30 mg SQ BID (WT < 150 kg, CrCl > 30 mL/min) AND/OR *Sequential Compression Device (SCD) 5 or more Highest Order ONE of the following medications: *Heparin 5000 units SQ TID (Preferred with Epidurals) *Enoxaparin/Lovenox 40 mg SQ daily (WT < 150 kg, CrCl > 30 mL/min) *Enoxaparin/Lovenox 30 mg SQ daily (WT < 150 kg, CrCl > 10-29 mL/min) *Enoxaparin/Lovenox 30 mg SQ BID (WT < 150 kg, CrCl > 30 mL/min) AND *Sequential Compression Device (SCD) <Luis Angel Azar - 04/29/18 11:27> Total Risk Factor Score Risk Level Prophylaxis Regimen 0-1 Low Early ambulation 2 Moderate Order ONE of the following: *Sequential Compression Device (SCD) *Heparin 5000 units SQ BID 3-4 Higher Order ONE of the following medications: *Heparin 5000 units SQ TID *Enoxaparin/Lovenox 40 mg SQ daily (WT < 150 kg, CrCl > 30 mL/min) *Enoxaparin/Lovenox 30 mg SQ daily (WT < 150 kg, CrCl > 10-29 mL/min) *Enoxaparin/Lovenox 30 mg SQ BID (WT < 150 kg, CrCl > 30 mL/min) AND/OR *Sequential Compression Device (SCD) 5 or more Highest Order ONE of the following medications: *Heparin 5000 units SQ TID (Preferred with Epidurals) *Enoxaparin/Lovenox 40 mg SQ daily (WT < 150 kg, CrCl > 30 mL/min) *Enoxaparin/Lovenox 30 mg SQ daily (WT < 150 kg, CrCl > 10-29 mL/min) *Enoxaparin/Lovenox 30 mg SQ BID (WT < 150 kg, CrCl > 30 mL/min) AND *Sequential Compression Device (SCD) <Mariama Chadwick - 04/28/18 23:58> Assessment and Plan - Assessment (1) Hypertensive emergency Code(s): I16.1 - Hypertensive emergency Status: Acute (2) Chest pain Code(s): R07.9 - Chest pain, unspecified Status: Acute (3) Rhabdomyolysis Code(s): M62.82 - Rhabdomyolysis Status: Acute (4) Elevated liver enzymes Code(s): R74.8 - Abnormal levels of other serum enzymes Status: Acute (5) Nutrition, metabolism, and development symptoms Code(s): R63.8 - Other symptoms and signs concerning food and fluid intake Status: Acute <Luis Angel Azar - 04/29/18 11:27> (1) Hypertensive emergency Code(s): I16.1 - Hypertensive emergency Status: Acute Plan: Patient with blood pressure up to 264/128, chest pain and possible muscle breakdown meets criteria for hypertensive emergency. Patient with history of stroke but no neurological deficits today. CT head: No acute intracranial abnormalities. Goal: gradual reduction of mean arterial pressure by 10 to 20% in first hour and by 5 to 15% over next 23 hours. BP with significant reduction at time of encounter. Labetalol 10mg IV ONCE x2 given in ED. Increase home Losartan from 50mg to 100mg PO daily; first dose in am. Monitor. (2) Chest pain Code(s): R07.9 - Chest pain, unspecified Status: Acute Plan: Patient with substernal chest pain/tightness, alleviated by nitroglycerin. WBC wnl. Troponin x1 negative. Serial troponin pending. EKG without ST segment elevation. Serial EKG pending. BNP 15. D-dimer 1.17. Lipase wnl. Mg pending. Lipid profile in am. HgbA1C in am. Chest XR: Minimal basilar atelectasis. Chest CTA: 1. Minimal right basilar atelectatic changes. 2. Otherwise negative. No acute infiltrate or pulmonary embolus to explain current clinical symptoms. 3. Cholelithiasis. Patient received Aspirin 243 CHEW ONCE in ED. Patient received Nitroglycerine SL ONCE in ED. Patient received Nitroglycerin ointment ONCE in ED. Morphine and Nitroglycerine ointment for pain control. Beta-merlene held at this time due to medication's effects on blood pressure and need for tight control. Atorvastatin held at this time due to possible muscle breakdown. Monitor via telemetry. (3) Rhabdomyolysis Code(s): M62.82 - Rhabdomyolysis Status: Acute Plan: On admission, CK 1411. UA pending. CK elevation with troponin I less than 0.02 and EKG without acute ST segment elevation consistent with rhabdomyolysis. IV hydration as below. Monitor. (4) Elevated liver enzymes Code(s): R74.8 - Abnormal levels of other serum enzymes Status: Acute Plan: Elevated liver enzymes noted on admission. Monitor. May consider hepatitis profile if levels do not improve. (5) Nutrition, metabolism, and development symptoms Code(s): R63.8 - Other symptoms and signs concerning food and fluid intake Status: Acute Plan: Fluid: NS at 150ml/hr. Nutrition: NPO. Electrolyte: Monitor and replete as necessary. <Mariama Chadwick - 04/29/18 02:32> - Assessment and Plan Discussed Condition With: Dr. Wooten, ED physician. <Mariama Chadwick - 04/29/18 03:09> - Attending Attestation The exam, history, and the medical decision-making described in the above note were completed with the assistance of the resident physician. I reviewed and agree with the findings presented. I attest that I had a [id number] encounter with the patient on the same day, and personally performed and documented my assessment and findings in the medical record. Discussed histories/ exam/ plan as above with dr purcell and agree. see my PN from 04/29/18 for updates. <Luis Angel Azar - 04/29/18 11:27> <Mariama Chadwick - Last Filed: 04/29/18 02:32> (3) Rhabdomyolysis Qualifiers: Rhabdomyolysis type: non-traumatic Qualified Code(s): M62.82 - Rhabdomyolysis <Luis Angel Azar - Last Filed: 04/29/18 11:27> (3) Rhabdomyolysis Qualifiers: Rhabdomyolysis type: non-traumatic Qualified Code(s): M62.82 - Rhabdomyolysis <Mariama Chadwick - Last Filed: 04/29/18 02:32> (3) Rhabdomyolysis Qualifiers: Rhabdomyolysis type: non-traumatic Qualified Code(s): M62.82 - Rhabdomyolysis <Luis Angel Azar - Last Filed: 04/29/18 11:27> (3) Rhabdomyolysis Qualifiers: Rhabdomyolysis type: non-traumatic Qualified Code(s): M62.82 - Rhabdomyolysis
[2018-04-29] MEDS ORDERED: Morphine Sulfate Inj 2 MG/ML Vial IV.PUSH PRN (02:49)
[2018-04-29 03:31] LABS: Hematocrit 39.1 % (35.0-46.0); Hemoglobin 13.5 gm/dL (11.6-15.3); Mean Corpuscular HGB Conc 34.5 % (32.0-36.0); Mean Corpuscular Hemoglobin 31.9 pg (27.0-34.0); Mean Corpuscular Volume 92.6 fL (80.0-100.0); Mean Platelet Volume 8.8 fL (7.0-11.0); Platelet Count 183 th/mm3 (150-450); Red Blood Count 4.22 mil/mm3 (4.00-5.30); Red Cell Distribution Width 14.1 % (11.6-17.2); White Blood Count 7.5 th/mm3 (4.0-11.0)
[2018-04-29 03:50] LABS: Albumin 3.7 g/dL (3.4-5.0); Anion Gap 4 meq/L (5-15); Aspartate Aminotransferase 51 U/L (15-37); Blood Urea Nitrogen 13 mg/dL (7-18); Calcium 8.7 mg/dL (8.5-10.1); Carbon Dioxide 32.2 meq/L (21.0-32.0); Chloride 108 meq/L (98-107); Cholesterol 94 mg/dL (120-200); Glomerular Filtration Rate 89 mL/min (>89); Glucose,Random 99 mg/dL (74-106); Magnesium 2.4 mg/dL (1.5-2.5); Potassium 4.2 meq/L (3.5-5.1); Sodium 144 meq/L (136-145); Triglycerides 63 mg/dL (42-150)
[2018-04-29 03:59] LABS: Alanine Aminotransferase 86 U/L (10-53); Alkaline Phosphatase 142 U/L (45-117); Chol/HDL Ratio 1.75 Ratio; Creatine Kinase 952 U/L (26-192); HDL Cholesterol 53.6 mg/dL (40.0-60.0); LDL Cholesterol,Calculated 28 mg/dL (0-99); Total Protein 7.6 g/dL (6.4-8.2)
[2018-04-29 04:12] LABS: CKMB Percent 0.5 % (0.0-4.0)
[2018-04-29] MEDS: Senna/Docusate Sodium 8.6/50 MG Tablet PO SCH ×2 (08:36→20:09)
[2018-04-29] MEDS: Pregabalin 75 MG Capsule PO SCH ×2 (08:36→20:09)
[2018-04-29] MEDS: Sod Chloride 0.9% Inj 1,000 ML IV.CONT SCH ×4 (08:46→21:31)
--- NOTE | 2018-04-29 11:36 | P.PNFP ---
Subjective Interval history: Chest pain resolved today. numbness also resolved. She is still waiting to urinate. no shortness of breath, no vision changes, says she had an MRI showing "spondylolithesis" overall feels much better. Results - Labs Result diagrams: 04/29/18 03:09 04/29/18 03:09 Abnormal lab results 04/28/18 04/28/18 04/29/18 Range/Units 20:00 20:00 03:09 D-Dimer Quant (PE/DVT) 1.17 H (0.00-0.50) mg/L FEU Potassium 3.4 L (3.5-5.1) meq/L Chloride 108 H (98-107) meq/L Carbon Dioxide 32.2 H (21.0-32.0) meq/L Anion Gap 4 L (5-15) meq/L Estimated GFR 88 L (>89) mL/min AST 64 H 51 H (15-37) U/L ALT 99 H 86 H (10-53) U/L Alkaline Phosphatase 151 H 142 H (45-117) U/L Total Creatine Kinase 1411 H 952 H (26-192) U/L CK-MB (CK-2) 6.9 H 5.0 H (0.5-3.6) ng/mL Troponin I Less than 0.02 L Less than 0.02 L (0.02-0.05) ng/mL Total Protein 8.4 H (6.4-8.2) g/dL Cholesterol 94 L (120-200) mg/dL Short CBC 04/28/18 04/29/18 Range/Units 20:00 03:09 WBC 7.5 7.5 (4.0-11.0) th/mm3 Hgb 13.7 13.5 (11.6-15.3) gm/dL Hct 39.4 39.1 (35.0-46.0) % Plt Count 178 183 (150-450) th/mm3 BMP 04/28/18 04/29/18 04/29/18 20:00 03:09 03:09 Sodium 141 144 Cancelled Potassium 3.4 L 4.2 D Cancelled Chloride 106 108 H Cancelled Carbon Dioxide 28.1 32.2 H Cancelled BUN 16 13 Cancelled Creatinine 0.80 0.79 Cancelled Calcium 8.7 8.7 Cancelled Cardiac Enzymes 04/28/18 04/29/18 Range/Units 20:00 03:09 Total Creatine Kinase 1411 H 952 H (26-192) U/L CK-MB (CK-2) 6.9 H 5.0 H (0.5-3.6) ng/mL Troponin I Less than 0.02 L Less than 0.02 L (0.02-0.05) ng/mL Liver Function 04/28/18 04/29/18 04/29/18 Range/Units 20:00 03:09 03:09 Total Bilirubin 0.4 0.4 Cancelled (0.2-1.0) mg/dL AST 64 H 51 H Cancelled (15-37) U/L ALT 99 H 86 H Cancelled (10-53) U/L Alkaline Phosphatase 151 H 142 H Cancelled (45-117) U/L Albumin 3.9 3.7 Cancelled (3.4-5.0) g/dL - Imaging Impressions Chest X-Ray 04/28/18 20:05 CONCLUSION: Minimal basilar atelectasis. Head CT 04/28/18 20:05 CONCLUSION: 1. No acute intracranial abnormalities. . . Chest CTA 04/28/18 21:50 CONCLUSION: 1. Minimal right basilar atelectatic changes. 2. Otherwise negative. No acute infiltrate or pulmonary embolus to explain current clinical symptoms. 3. Cholelithiasis. Physical Exam Vital signs: Vital Signs 04/28/18 19:14 04/28/18 19:35 04/28/18 20:09 Temperature 98.5 F Pulse Rate 72 76 69 Respiratory Rate 20 18 20 Blood Pressure 195/119 H 232/122 H 245/121 H Pulse Oximetry 99 100 98 04/28/18 20:55 04/28/18 21:05 04/28/18 21:10 Temperature Pulse Rate 65 70 68 Respiratory Rate 20 Blood Pressure 264/128 H 168/93 H 166/90 H Pulse Oximetry 98 04/29/18 00:53 04/29/18 01:30 04/29/18 04:00 Temperature 97.6 F Pulse Rate 62 71 88 Respiratory Rate 20 18 16 Blood Pressure 134/72 158/86 H 139/80 Pulse Oximetry 99 97 04/29/18 07:00 04/29/18 08:00 Temperature 98.2 F Pulse Rate 58 L 74 Respiratory Rate 16 Blood Pressure 124/68 Pulse Oximetry 98 Intake & Output 04/28/18 04/29/18 04/29/18 18:59 06:59 18:59 Output Total 300 / 300 Balance -300 / -300 Weight 70.9 kg 70.9 kg Output: Urine 300 / 300 Other: Date of Last Bowel Movement 04/28/18 Weight On Admission 70.9 kg - Constitutional no acute distress, average body habitus, cooperative - Routine HEENT Exam Head: Present: normocephalic, atraumatic Eye: Present: EOMI, PERRL, normal accommodation ENT: Present: mucous membranes moist - Routine Neck Exam Present: supple, full ROM. Absent: JVD - Routine Respiratory Exam Present: CTA bilaterally. Absent: accessory muscle use - Routine Cardiovascular Exam Present: RRR, S1, S2 - Routine Abdominal Exam Present: soft, normoactive bowel sounds. Absent: tenderness, distended, rebound , guarding - Routine Extremities Exam Absent: cyanosis, clubbing - Routine Skin Exam Present: intact. Absent: cyanosis, erythema - Routine Neurological Exam Present: alert, oriented X3, CN II-XII intact, normal speech. Absent: sensory deficit, motor deficit, pronator drift, altered mental status, normal tone, nystagmus, vision grossly intact, hearing grossly intact, hemineglect, facial asymmetry, tremors, asterixis - Routine Psychiatric Exam Present: normal affect, normal thought process Assessment and Plan - Assessment (1) TIA (transient ischemic attack) Code(s): G45.9 - Transient cerebral ischemic attack, unspecified Status: Acute Plan: history of TIA, possibly some overlap in old symptoms, mixed with known cervical radiculopathy lipid profile great on high intensity statin and on aspirin already being worked up and followed up by [facility] if has any new symptoms will get MRI brain, carotid US, ECHO, tele etc for stroke/TIA work up but after discussion with patient will hold off for now. (2) Hypertensive emergency Code(s): I16.1 - Hypertensive emergency Status: Acute Plan: Symptoms resolved, BPs actually at goal after 20mg IV only yesterday evening Continue to monitor today on home medications and trend labs initiate secondary HTN work up if BPs rise again too much Goal d/c tomorrow on good home regimen (3) Chest pain Code(s): R07.9 - Chest pain, unspecified Status: Acute Plan: likely 2/2 above controlled now troponins negative cont home aspirin ACS and PE essentially ruled out. (4) Rhabdomyolysis Code(s): M62.82 - Rhabdomyolysis Status: Acute Plan: improving likely 2/2 HTN emergency cont to trend with IVF (5) Elevated liver enzymes Code(s): R74.8 - Abnormal levels of other serum enzymes Status: Acute Plan: Improving with BP control may be related to HTN emergency Rpt tomorrow if continuing to down trend can f/u outpatient (6) Nutrition, metabolism, and development symptoms Code(s): R63.8 - Other symptoms and signs concerning food and fluid intake Status: Acute Plan: Fluid: NS at 150ml/hr. Nutrition: Regular diet Electrolyte: Monitor and replete as necessary. - Assessment and Plan Overall plan watch BP today, rpt CK and LFTs tomorrow, hopefully discharge tomorrow (4) Rhabdomyolysis Qualifiers: Rhabdomyolysis type: non-traumatic Qualified Code(s): M62.82 - Rhabdomyolysis
[2018-04-29 12:34] LABS: Creatine Kinase 783 U/L (26-192)
[2018-04-29 12:48] LABS: CKMB Percent 0.5 % (0.0-4.0); Creatine Kinase MB 3.7 ng/mL (0.5-3.6)
--- NOTE | 2018-04-29 14:55 | ECG ---
Date Performed: 04/28/2018 Time Performed: 20:57:58 PTAGE: 62 years EKG: Sinus rhythm BORDERLINE LEFT AXIS DEVIATION BORDERLINE ECG NO PREVIOUS TRACING DOCTOR: Tito Morel Interpretating Date/Time 04/29/2018 14:54:12
--- NOTE | 2018-04-29 15:18 | ECG ---
Date Performed: 04/29/2018 Time Performed: 03:06:10 PTAGE: 62 years EKG: Sinus rhythm Normal ECG Since PREVIOUS TRACING , no significant change noted PREVIOUS TRACIN04/28/2018 20.57 DOCTOR: Tito Morel Interpretating Date/Time 04/29/2018 15:17:42
[2018-04-29 17:08] LABS: Hemoglobin A1c 6.2 % (4.3-6.0)
[2018-04-29 17:42] LABS: Bacteria,Urine Rare /hpf; Bilirubin,Urine Negative (Negative); Clarity,Urine Clear (Clear); Color,Urine Yellow (Yellw/Straw); Glucose,Urine (UA) Negative (Negative); Leukocyte Esterase,Urine Negative (Negative); Mucus,Urine Few /lpf (Occasional); Nitrite,Urine Negative (Negative); Specific Gravity,Urine 1.036 (1.002-1.035); Squamous Epithelial Cell,Urine 1 /hpf (0-5)
[2018-04-29 23:37] VITALS: RESP 18
[2018-04-30] MEDS: Sod Chloride 0.9% Inj 1,000 ML IV.CONT SCH ×2 (04:54→08:48)
[2018-04-30 06:13] LABS: Alanine Aminotransferase 61 U/L (10-53); Albumin 3.1 g/dL (3.4-5.0); Alkaline Phosphatase 122 U/L (45-117); Anion Gap 3 meq/L (5-15); Aspartate Aminotransferase 33 U/L (15-37); Blood Urea Nitrogen 15 mg/dL (7-18); Calcium 8.2 mg/dL (8.5-10.1); Carbon Dioxide 29.7 meq/L (21.0-32.0); Chloride 113 meq/L (98-107); Creatine Kinase 449 U/L (26-192); Glomerular Filtration Rate 84 mL/min (>89); Glucose,Random 94 mg/dL (74-106); Potassium 4.4 meq/L (3.5-5.1); Sodium 146 meq/L (136-145); Total Protein 6.7 g/dL (6.4-8.2)
[2018-04-30 07:04] LABS: CKMB Percent 0.5 % (0.0-4.0); Creatine Kinase MB 2.1 ng/mL (0.5-3.6)
[2018-04-30] MEDS: Senna/Docusate Sodium 8.6/50 MG Tablet PO SCH (08:41)
[2018-04-30] MEDS: Pregabalin 75 MG Capsule PO SCH (08:41)
[2018-04-30 09:22] VITALS: O2SAT 100
--- NOTE | 2018-04-30 09:45 | P.PNFP ---
Subjective Interval history: Patient seen and examined this morning. She states that she is feeling well this morning. She notes decreasing numbness of the right jaw and cheek, improved from admission. She continues to admit to mild tingling and numbness in her right upper extremity, consistent with spinal stenosis of the cervical spine per patient report of prior MRI of the spine. Denies headache, vision change, nausea, vomiting, shortness of breath, chest pain, leg swelling, or leg pain. She overall feels well and would like to return home. She states that she has regular follow-up with her PCP and neurosurgeon in [place]. All questions answered. <La Nena Nina - 04/30/18 15:39> Results - Labs Result diagrams: 04/29/18 03:09 04/30/18 05:08 <Luis Angel Azar - 04/30/18 20:46> Abnormal lab results 04/29/18 04/30/18 Range/Units 03:09 05:08 Sodium 146 H (136-145) meq/L Chloride 113 H (98-107) meq/L Anion Gap 3 L (5-15) meq/L Estimated GFR 84 L (>89) mL/min Hemoglobin A1c 6.2 H (4.3-6.0) % Calcium 8.2 L (8.5-10.1) mg/dL ALT 61 H (10-53) U/L Alkaline Phosphatase 122 H (45-117) U/L Total Creatine Kinase 449 H (26-192) U/L Albumin 3.1 L D (3.4-5.0) g/dL BMP 04/30/18 05:08 Sodium 146 H Potassium 4.4 Chloride 113 H Carbon Dioxide 29.7 BUN 15 Creatinine 0.83 Calcium 8.2 L Cardiac Enzymes 04/30/18 Range/Units 05:08 Total Creatine Kinase 449 H (26-192) U/L CK-MB (CK-2) 2.1 (0.5-3.6) ng/mL Liver Function 04/30/18 Range/Units 05:08 Total Bilirubin 0.5 (0.2-1.0) mg/dL AST 33 (15-37) U/L ALT 61 H (10-53) U/L Alkaline Phosphatase 122 H (45-117) U/L Albumin 3.1 L D (3.4-5.0) g/dL <Luis Angel Azar - 04/30/18 20:46> Abnormal lab results 04/29/18 04/29/18 04/29/18 Range/Units 03:09 11:31 17:17 Sodium (136-145) meq/L Chloride (98-107) meq/L Anion Gap (5-15) meq/L Estimated GFR (>89) mL/min Hemoglobin A1c 6.2 H (4.3-6.0) % Calcium (8.5-10.1) mg/dL ALT (10-53) U/L Alkaline Phosphatase (45-117) U/L Total Creatine Kinase 783 H (26-192) U/L CK-MB (CK-2) 3.7 H (0.5-3.6) ng/mL Troponin I Less than 0.02 L (0.02-0.05) ng/mL Albumin (3.4-5.0) g/dL Ur Specific Shafer 1.036 H (1.002-1.035) Urine Occult Blood Small H (Negative) Urine RBC 4 H (0-3) /hpf Urine Bacteria Rare H (None) /hpf Urine Mucus Few H (Occasional) /lpf 04/30/18 Range/Units 05:08 Sodium 146 H (136-145) meq/L Chloride 113 H (98-107) meq/L Anion Gap 3 L (5-15) meq/L Estimated GFR 84 L (>89) mL/min Hemoglobin A1c (4.3-6.0) % Calcium 8.2 L (8.5-10.1) mg/dL ALT 61 H (10-53) U/L Alkaline Phosphatase 122 H (45-117) U/L Total Creatine Kinase 449 H (26-192) U/L CK-MB (CK-2) (0.5-3.6) ng/mL Troponin I (0.02-0.05) ng/mL Albumin 3.1 L D (3.4-5.0) g/dL Ur Specific Shafer (1.002-1.035) Urine Occult Blood (Negative) Urine RBC (0-3) /hpf Urine Bacteria (None) /hpf Urine Mucus (Occasional) /lpf BMP 04/30/18 05:08 Sodium 146 H Potassium 4.4 Chloride 113 H Carbon Dioxide 29.7 BUN 15 Creatinine 0.83 Calcium 8.2 L Cardiac Enzymes 04/29/18 04/30/18 Range/Units 11:31 05:08 Total Creatine Kinase 783 H 449 H (26-192) U/L CK-MB (CK-2) 3.7 H 2.1 (0.5-3.6) ng/mL Troponin I Less than 0.02 L (0.02-0.05) ng/mL Liver Function 04/30/18 Range/Units 05:08 Total Bilirubin 0.5 (0.2-1.0) mg/dL AST 33 (15-37) U/L ALT 61 H (10-53) U/L Alkaline Phosphatase 122 H (45-117) U/L Albumin 3.1 L D (3.4-5.0) g/dL Urine 04/29/18 Range/Units 17:17 Urine Color Yellow (Yellw/Straw) Urine Clarity Clear (Clear) Urine pH 6.0 (5.0-8.5) Ur Specific Shafer 1.036 H (1.002-1.035) Urine Protein Negative (Neg-Trace) mg/dL Urine Glucose (UA) Negative (Negative) mg/dL <Niranjan QuintanaLa Nena B - 04/30/18 09:45> Physical Exam Vital signs: Vital Signs 04/29/18 21:00 04/29/18 22:00 04/29/18 23:00 Temperature Pulse Rate 66 68 68 Respiratory Rate Blood Pressure Pulse Oximetry 04/29/18 23:36 04/30/18 00:00 04/30/18 01:00 Temperature 98 F Pulse Rate 80 64 69 Respiratory Rate 18 Blood Pressure 148/94 H Pulse Oximetry 96 04/30/18 02:00 04/30/18 03:00 04/30/18 04:00 Temperature 98.6 F Pulse Rate 72 63 76 Respiratory Rate 18 Blood Pressure 114/76 Pulse Oximetry 96 04/30/18 05:00 04/30/18 06:00 04/30/18 07:00 Temperature Pulse Rate 67 77 60 Respiratory Rate Blood Pressure Pulse Oximetry 04/30/18 08:51 04/30/18 09:00 04/30/18 10:00 Temperature 97.2 F L Pulse Rate 66 80 82 Respiratory Rate 18 Blood Pressure 140/89 Pulse Oximetry 100 04/30/18 10:45 04/30/18 12:19 Temperature 98.6 F Pulse Rate 73 Respiratory Rate 18 Blood Pressure 158/93 H Pulse Oximetry 100 Intake & Output 04/30/18 04/30/18 05/01/18 06:59 18:59 06:59 Intake Total 1480 / 1480 1000 / 1000 Output Total 900 / 900 Balance 580 / 580 1000 / 1000 Weight 76 kg Intake: IV 1000 / 1000 1000 / 1000 NS Inj 1,000 ML @ 150 mls/hr IV 1000 / 1000 1000 / 1000 .CONT .Q6H40M [facility] Rx#:[id number] Oral 480 / 480 Output: Urine 900 / 900 Other: Date of Last Bowel Movement 04/29/18 04/30/18 <Luis Angel Azar 04/30/18 20:46> Vital Signs 04/29/18 10:00 04/29/18 11:00 04/29/18 12:00 Temperature 98.0 F Pulse Rate 68 65 58 L Respiratory Rate 16 Blood Pressure 113/70 Pulse Oximetry 95 04/29/18 13:00 04/29/18 14:00 04/29/18 15:00 Temperature Pulse Rate 58 L 58 L 73 Respiratory Rate Blood Pressure Pulse Oximetry 04/29/18 16:00 04/29/18 16:32 04/29/18 17:00 Temperature 98.0 F Pulse Rate 66 64 Respiratory Rate 16 Blood Pressure 117/63 Pulse Oximetry 97 95 04/29/18 18:00 04/29/18 19:00 04/29/18 20:00 Temperature 97.7 F Pulse Rate 76 70 70 Respiratory Rate 16 Blood Pressure 147/76 H Pulse Oximetry 98 04/29/18 21:00 04/29/18 22:00 04/29/18 23:00 Temperature Pulse Rate 66 68 68 Respiratory Rate Blood Pressure Pulse Oximetry 04/29/18 23:36 04/30/18 00:00 04/30/18 01:00 Temperature 98 F Pulse Rate 80 64 69 Respiratory Rate 18 Blood Pressure 148/94 H Pulse Oximetry 96 04/30/18 02:00 04/30/18 03:00 04/30/18 04:00 Temperature 98.6 F Pulse Rate 72 63 76 Respiratory Rate 18 Blood Pressure 114/76 Pulse Oximetry 96 04/30/18 05:00 04/30/18 06:00 04/30/18 08:51 Temperature 97.2 F L Pulse Rate 67 77 66 Respiratory Rate 18 Blood Pressure 140/89 Pulse Oximetry 100 Intake & Output 04/29/18 04/30/18 04/30/18 18:59 06:59 18:59 Intake Total 1480 / 1480 1480 / 1480 1000 / 1000 Output Total 300 / 300 900 / 900 Balance 1180 / 1180 580 / 580 1000 / 1000 Weight 70.9 kg 76 kg Intake: IV 1000 / 1000 1000 / 1000 1000 / 1000 NS Inj 1,000 ML @ 150 mls/hr IV 1000 / 1000 1000 / 1000 1000 / 1000 .CONT .Q6H40M [facility] Rx#:[id number] Oral 480 / 480 480 / 480 Output: Urine 300 / 300 900 / 900 Other: Date of Last Bowel Movement 04/28/18 04/29/18 Weight On Admission 70.9 kg <La Nena Nina - 04/30/18 09:45> Narrative: GENERAL: -[place] female, laying in hospital bed, in no acute distress. SKIN: Warm and dry. EYES: Pupils equal and round. EOMI. no scleral icterus. No injection or drainage. ENT: No nasal bleeding or discharge. Mucous membranes pink and moist. CARDIOVASCULAR: Regular rate and rhythm. RESPIRATORY: No accessory muscle use. Clear to auscultation. Breath sounds equal bilaterally. GASTROINTESTINAL: Bowel sounds in all 4 quadrants. Abdomen soft, non-tender, nondistended. MUSCULOSKELETAL: Extremities without clubbing, cyanosis, or edema. No obvious deformities. NEUROLOGICAL: Awake and alert. No obvious cranial nerve deficits. Motor and sensory grossly within normal limits. Normal speech. PSYCHIATRIC: Appropriate mood and affect; insight and judgment fair. <La Nena Nina - 04/30/18 15:39> Assessment and Plan - Assessment (1) TIA (transient ischemic attack) Code(s): G45.9 - Transient cerebral ischemic attack, unspecified Status: Resolved (2) Hypertensive emergency Code(s): I16.1 - Hypertensive emergency Status: Resolved (3) Chest pain Code(s): R07.9 - Chest pain, unspecified Status: Resolved (4) Rhabdomyolysis Code(s): M62.82 - Rhabdomyolysis Status: Acute (5) Elevated liver enzymes Code(s): R74.8 - Abnormal levels of other serum enzymes Status: Acute (6) Nutrition, metabolism, and development symptoms Code(s): R63.8 - Other symptoms and signs concerning food and fluid intake Status: Acute <Luis Angel Azar Sylvester - 04/30/18 20:46> (1) TIA (transient ischemic attack) Code(s): G45.9 - Transient cerebral ischemic attack, unspecified Status: Resolved Plan: History of TIA, possibly some overlap in old symptoms, mixed with known cervical radiculopathy Lipid profile great on high intensity statin and on aspirin Already being worked up and followed up by her [facility] No new symptomatology overnight (2) Hypertensive emergency Code(s): I16.1 - Hypertensive emergency Status: Resolved Plan: Symptoms resolved, BPs actually at goal after 20mg IV labetalol on the evening of admission. -Blood pressure overnight ranging from 170/60 - 148/94 -Laboratory values including LFTs and CK trending downward -Placed back on home dose of losartan 50 mg daily, yesterday with adequate response (3) Chest pain Code(s): R07.9 - Chest pain, unspecified Status: Resolved Plan: likely 2/2 above, denies chest pain at present -Troponins negative -Serial EKG WNL -Cont home aspirin -Beta-merlene held on admission due to effect on blood pressure -Home atorvastatin held due to elevated CK -ACS and PE essentially ruled out. (4) Rhabdomyolysis Code(s): M62.82 - Rhabdomyolysis Status: Acute Plan: improving likely 2/2 HTN emergency -CK on admission 1411. Improved to 449 today, following IV hydration overnight. (5) Elevated liver enzymes Code(s): R74.8 - Abnormal levels of other serum enzymes Status: Acute Plan: Improving with BP control may be related to HTN emergency Rpt tomorrow if continuing to down trend can f/u outpatient (6) Nutrition, metabolism, and development symptoms Code(s): R63.8 - Other symptoms and signs concerning food and fluid intake Status: Acute Plan: Fluid: NS at 150ml/hr. Nutrition: Regular diet Electrolyte: Monitor and replete as necessary. <La Nena Nina - 04/30/18 16:00> - Assessment and Plan Patient stable for discharge home today. Atorvastatin stopped on hospital discharge to elevated CK on admission, now resolving, and lipid panel showing total cholesterol of 94 and LDL of 28. Discussed results with patient and recommended close follow-up with PCP to discuss risks and benefits of stopping high-dose statin regimen due to history of TIA, in light of lipid panel. Patient voiced understanding and is agreeable with plan. dw Dr. Azar and Dr. Hawk <La Nena Nina - 04/30/18 16:02> - Attending Attestation The exam, history, and the medical decision-making described in the above note were completed with the assistance of the resident physician. I reviewed and agree with the findings presented. I attest that I had a [id number] encounter with the patient on the same day, and personally performed and documented my assessment and findings in the medical record. Agree with above with following exceptions: CK<500, LFTs normalizing, BP ok, only symptoms are chronic right arm symptoms she had had from known cervical radiculopathy, she brought MRI report today. neuro exam normal no chest pain and no facial numbness. CAn d/c on same home BP regimen but will temporarily stop statin until follows with pcp. she voices understanding of when to come back to hospital and will f/u with PCP and neurosurgeon. <Luis Angel Azar - 04/30/18 20:46> <La Nena Nina - Last Filed: 04/30/18 16:00> (4) Rhabdomyolysis Qualifiers: Rhabdomyolysis type: non-traumatic Qualified Code(s): M62.82 - Rhabdomyolysis <Luis Angel Azar - Last Filed: 04/30/18 20:46> (4) Rhabdomyolysis Qualifiers: Rhabdomyolysis type: non-traumatic Qualified Code(s): M62.82 - Rhabdomyolysis <La Nena Nina - Last Filed: 04/30/18 16:00> (4) Rhabdomyolysis Qualifiers: Rhabdomyolysis type: non-traumatic Qualified Code(s): M62.82 - Rhabdomyolysis <Luis Angel Azar - Last Filed: 04/30/18 20:46> (4) Rhabdomyolysis Qualifiers: Rhabdomyolysis type: non-traumatic Qualified Code(s): M62.82 - Rhabdomyolysis
[2018-04-30 12:26] VITALS: BP 158/93; PULSE 83; TEMP 98.6
== END 2018-04-30 14:25 | disposition home or self-care (01) | DRG 69 ==
LOC: NEPE 18:59 → NEDA 23:39 → HCIS 04-29 01:10 → NEDA 04-29 01:16
PROVIDERS: ADMIT Family Medicine; ATTEND Family Medicine
CPT/HCPCS: 70450; 71010; 71045; 71275; 80053; 80061; 81001; 82550; 82552; 83036; 83520; 83690; 83735; 83880; 84484; 85025; 85027; 85379; 85610; 85730; 90774; 90784; 93005; 94150; 96374; 97166; 99285; C8952; J2270; J2405; J7030; Q9967